=== PATIENT | male | born 1990 | race Asian ===

== ENCOUNTER 2018-01-06 22:12 | Emergency (ER) | payer MEDICAID ==
[~2018-01-06] VITALS: Ht 170.2 cm; Wt 68.2 kg
[2018-01-06] MEDS ORDERED: LURA60TA PO (22:28)
[2018-01-07 00:10] VITALS: BP 141/82
== END 2018-01-07 00:55 | disposition home or self-care (01) ==
LOC: EMS 22:15
DX: Z04.1 Encounter for examination and observation following transport accident (principal); F20.9 Schizophrenia, unspecified; Z88.8 Allergy status to other drugs, medicaments and biological substances; V49.40XA Driver injured in collision with unspecified motor vehicles in traffic accident, initial encounter; Y93.89 Activity, other specified; Y92.411 Interstate highway as the place of occurrence of the external cause; Y99.8 Other external cause status
CPT/HCPCS: 99281

== ENCOUNTER 2018-08-25 17:34 | Inpatient (IN) | payer MEDICAID ==
[~2018-08-25] VITALS: Ht 170.2 cm; Wt 62.7 kg
[~2018-08-25 17:34] MED LIST: LURA60TA PO
[2018-08-25] MEDS ORDERED: HALOPERIDOL 5 MG TABLET PO PRN (18:15)
[2018-08-25] MEDS ORDERED: ZOLPIDEM TARTRATE 10 MG TABLET PO PRN (18:15)
[2018-08-25] MEDS ORDERED: LORazepam 2 MG TABLET PO PRN (18:15)
[2018-08-25] MEDS ORDERED: RISP2 PO (18:32)
[2018-08-25] MEDS ORDERED: DIAZ5 PO (18:32)
[2018-08-25 19:02] VITALS: BP 132/76
[2018-08-26 01:21] VITALS: BP 121/80
[2018-08-26 09:21] VITALS: BP 130/81
[2018-08-26 16:30] VITALS: BP 127/83
[2018-08-26] MEDS: RisperiDONE 3 MG TABLET PO SCH (16:56)
[2018-08-27 06:29] VITALS: BP 125/74
[2018-08-27] MEDS: RisperiDONE 3 MG TABLET PO SCH ×3 (08:18→16:57)
[2018-08-27 08:28] LABS: BASOPHILS % (AUTO) 0.5 % (0.0-2.0); EOSINOPHILS % (AUTO) 2.5 % (1.0-6.0); HEMATOCRIT 42.3 % (41-53); HEMOGLOBIN 14.3 g/dL (13.5-17.5); LYMPHOCYTES # (AUTO) 1.7 K/uL (1.0-4.8); LYMPHOCYTES % (AUTO) 31.9 % (22.0-44.0); MEAN CORPUSCULAR HEMOGLOBIN 29.6 pg (26.0-34.0); MEAN CORPUSCULAR HGB CONC 33.9 G/dL (31.0-37.0); MEAN CORPUSCULAR VOLUME 87 fL (80-100); MONOCYTES # (AUTO) 0.3 K/uL (0.1-1.0); MONOCYTES % (AUTO) 5.2 % (2.0-9.0); NEUTROPHILS # (AUTO) 3.2 K/uL (1.8-7.7); NEUTROPHILS % (AUTO) 59.9 % (40.0-70.0); PLATELET COUNT (AUTO) 247 K/uL (150-450); RED BLOOD CELL COUNT(AUTO) 4.85 MIL/uL (4.50-5.90); RED CELL DISTRIBUTION WIDTH 12.5 % (11.5-14.5)
[2018-08-27 08:56] VITALS: BP 140/86
[2018-08-27 08:56] LABS: HEMOGLOBIN A1C 4.7 % (4.5-6.2)
[2018-08-27 09:08] LABS: ALANINE AMINOTRANSFERASE 24 U/L (12-78); ALBUMIN 4.1 g/dL (3.4-5.0); ALKALINE PHOSPHATASE 65 U/L (46-116); ANION GAP 9 mmol/L (8-16); ASPARTATE AMINOTRANSFERASE 38 U/L (15-37); BILIRUBIN,TOTAL 0.6 mg/dL (0.1-1.0); CARBON DIOXIDE 29 mmol/L (22-29); CHLORIDE 102 mmol/L (98-107); CHOL/HDL RATIO 6.9 (4.2-7.3); CHOLESTEROL 228 mg/dL (131-200); CREATININE 0.85 mg/dL (0.60-1.30); FREE T4 (FREE THYROXINE) 1.69 ng/dL (0.76-1.46); GLOMERULAR FILTR. RATE CALC > 60 mL/min (>60); GLUCOSE,RANDOM 90 mg/dL (70-110); HDL CHOLESTEROL 33 mg/dL (40-60); LDL CHOL (CALC.) 171 mg/dL (0-130); SODIUM SERUM 140 mmol/L (136-145); THYROID STIMULATING HORMONE 0.46 uIU/mL (0.36-3.74); TOTAL PROTEIN, SERUM 7.3 g/dL (6.4-8.2); TRIGLYCERIDES 120 mg/dL (15-150); UREA NITROGEN, BLOOD 11 mg/dL (7-18)
[2018-08-27 16:13] VITALS: BP 123/78
[2018-08-28 06:16] VITALS: BP 119/70
[2018-08-28 08:19] VITALS: BP 117/72
[2018-08-28] MEDS: RisperiDONE 3 MG TABLET PO SCH ×2 (09:55→16:24)
[2018-08-28] MEDS: ATORVASTATIN CALCIUM 20 MG TABLET PO SCH (09:55)
[2018-08-28 16:35] VITALS: BP 108/77
[2018-08-29 02:12] VITALS: BP 100/60
[2018-08-29] MEDS: ATORVASTATIN CALCIUM 20 MG TABLET PO SCH (09:20)
[2018-08-29] MEDS: RisperiDONE 3 MG TABLET PO SCH ×2 (09:21→17:35)
[2018-08-29] MEDS: SERTRALINE HCL 50 MG TABLET PO SCH ×2 (10:15→10:49)
[2018-08-29 14:43] VITALS: BP 124/78
[2018-08-29 16:42] VITALS: BP 101/75
[2018-08-30 00:55] VITALS: BP 109/62
[2018-08-30 08:41] VITALS: BP 123/70
[2018-08-30] MEDS: RisperiDONE 3 MG TABLET PO SCH ×4 (08:52→16:34)
[2018-08-30] MEDS: ATORVASTATIN CALCIUM 20 MG TABLET PO SCH ×3 (08:52→10:09)
[2018-08-30] MEDS: SERTRALINE HCL 50 MG TABLET PO SCH ×3 (08:52→10:09)
[2018-08-30 16:20] VITALS: BP 120/69
[2018-08-31 01:02] VITALS: BP 118/72
[2018-08-31 08:36] VITALS: BP 122/65
[2018-08-31] MEDS: ATORVASTATIN CALCIUM 20 MG TABLET PO SCH (09:47)
[2018-08-31] MEDS: SERTRALINE HCL 50 MG TABLET PO SCH (09:47)
[2018-08-31] MEDS: RisperiDONE 3 MG TABLET PO SCH ×2 (09:47→16:35)
[2018-08-31] MEDS: TOPIRAMATE 25 MG TABLET PO SCH ×2 (11:31→16:35)
[2018-08-31 16:03] VITALS: BP 115/68
[2018-09-01 00:54] VITALS: BP 102/87
[2018-09-01 08:21] VITALS: BP 121/88
[2018-09-01] MEDS: RisperiDONE 3 MG TABLET PO SCH (09:22)
[2018-09-01] MEDS: TOPIRAMATE 25 MG TABLET PO SCH (09:22)
[2018-09-01] MEDS: ATORVASTATIN CALCIUM 20 MG TABLET PO SCH (09:22)
[2018-09-01] MEDS: SERTRALINE HCL 50 MG TABLET PO SCH (09:23)
[2018-09-01] MEDS ORDERED: ATOR20TA86 PO (13:35)
[2018-09-01] MEDS ORDERED: SERT50TA12 PO (13:35)
[2018-09-01] MEDS ORDERED: RISP3 PO (13:35)
[2018-09-01] MEDS ORDERED: TOPI25 PO (13:35)
== END 2018-09-01 13:55 | disposition home or self-care (01) | DRG 750 ==
LOC: B2S 18:13
PROVIDERS: ADMIT Psychiatry & Neurology Psychiatry; ATTEND Psychiatry & Neurology Psychiatry
DX: F20.0 Paranoid schizophrenia (principal); E78.5 Hyperlipidemia, unspecified; F17.200 Nicotine dependence, unspecified, uncomplicated
CPT/HCPCS: 83036; 84439; 84443; 90686